=== PATIENT | male | born 1935 | race Caucasian/White ===

== ENCOUNTER 2020-07-21 07:46 | Inpatient (IN) | payer OTHER ==
[~2020-07-21] VITALS: Ht 167.6 cm; Wt 96.4 kg
[~2020-07-21 07:46] MED LIST: CLOP75; DOES NOT KNOW MEDS
[2020-07-21 09:20] LABS: Alanine Aminotransfer (ALT/SGP 31 U/L (12-78); Albumin, Blood 2.1 g/dL (3.4-5.0); Albumin/Globulin Ratio 0.5 (0.8-1.8); Alk Phos 89 U/L (50-136); Anion Gap 7 mmol/L (6-16); Aspartate Aminotrans (AST/SGOT 83 U/L (12-37); Bilirubin, Total 0.5 mg/dL (0.1-1.0); Blood Urea Nitrogen 22 mg/dL (8-24); Bun/Creatinine Ratio 19.8 (12.0-20.0); CO2, Blood 23 mmol/L (21-32); Calcium, Blood 7.8 mg/dL (8.5-10.1); Chloride, Blood 105 mmol/L (98-108); Creatinine, Blood 1.11 mg/dL (0.60-1.20); Globulin, Blood 4.4 g/dL (2.2-4.0); Glomerular Filtration Rate >60 (60-); Glucose, Blood 107 mg/dL (70-99); Potassium, Blood 4.4 mmol/L (3.5-5.5); Sodium, Blood 135 mmol/L (136-145); Total Protein, Blood 6.5 g/dL (6.4-8.2); Troponin I <0.015 ng/mL (0.000-0.040)
[2020-07-21] MEDS ORDERED: GLIMEPIRIDE4 MG PO (09:33)
[2020-07-21] MEDS ORDERED: CARVEDILOL25 MG PO (09:33)
[2020-07-21] MEDS ORDERED: FUROSEMIDE20 MG PO (09:33)
[2020-07-21 09:34] LABS: BASOPHILS ABSOLUTE AUTO 0.01 K/mm3 (0.00-0.23); BASOPHILS PERCENT AUTO 0 % (0-2); EOSINOPHILS PERCENT AUTO 0 % (0-6); Hematocrit 38.9 % (37.0-53.0); Hemoglobin 12.5 g/dL (13.5-17.5); IMMATURE GRAN ABSOLUTE AUTO 0.02 K/mm3 (0.00-0.10); IMMATURE GRAN PERCENT AUTO 0 % (0-1); LYMPHOCYTES ABSOLUTE AUTO 1.05 K/mm3 (0.84-5.20); LYMPHOCYTES PERCENT AUTO 12 % (21-46); MONOCYTES ABSOLUTE AUTO 0.67 K/mm3 (0.16-1.47); MONOCYTES PERCENT AUTO 8 % (4-13); Mean Corpuscular HGB 29.9 pg (26.0-34.0); Mean Corpuscular HGB Conc 32.1 g/dL (31.5-36.5); Mean Corpuscular Volume 93 fL (80-100); Mean Platelet Volume 9.9 fL (9.1-12.4); NEUTROPHILS ABSOLUTE AUTO 6.93 K/mm3 (1.96-9.15); NEUTROPHILS PERCENT AUTO 80 % (41-73); Platelet Count 151 K/mm3 (150-400); RDW Coefficient Variation 13.9 % (11.7-14.2); RDW Standard Deviation 47.7 fL (35.1-46.3); Red Blood Cell Count 4.18 M/mm3 (4.30-5.90); White Blood Cell Count 8.68 K/mm3 (4.00-11.30)
[2020-07-21] MEDS ORDERED: BASAGLAR K100 UNIT/1 (09:34)
[2020-07-21] MEDS ORDERED: ATOR40TA PO (09:34)
[2020-07-21] MEDS ORDERED: CILOSTAZOL50 MG PO (09:35)
[2020-07-21] MEDS ORDERED: PLAVIX75 MG PO (09:35)
[2020-07-21] MEDS ORDERED: ALLO300 PO (09:35)
[2020-07-21] MEDS ORDERED: LOSARTAN POTAS100 M1 PO (11:43)
--- NOTE | 2020-07-21 18:48 | NUR ---
PT RESTING IN BED AFTER DINNER AND MEDICATION ADMIN. PT MAKES NO COMPLAINTS AT THIS TIME. PT ALERT AND ORIENTED AND UNDERSTANDS HOW HIS LOW BS LEAD TO HIS RECENT FALL AT HOME AND MEDICAL UNIT STAY. PT IS ON BED REST AND USES BREIFS AT THE TIME HE LOOSES URIN AND STOOL WHEN HE COUGHS. sTAFF WILL CONT TO MONITOR AND PT WILL REMAIN ON 2L.
--- NOTE | 2020-07-22 04:50 | NUR ---
SHIFT SUMMARY ADMITTED FOR HYPOGLYCEMIA AND RESP FAILURE. COVID POSITIVE. DNR CODE. PT IS ON 2 LPM O2 HERE, RA AT HOME. HE IS INDEPENDENT AT HOME, BUT WEAK AND TWO PERSON ASSIST SINCE ADMIT. HE IS A&O X4 FOR THIS SHIFT. NO HYPOGLYCEMIC EPISODES THIS SHIFT.
[2020-07-22 04:51] LABS: Hematocrit 37.4 % (37.0-53.0); Hemoglobin 12.3 g/dL (13.5-17.5); Mean Corpuscular HGB 30.4 pg (26.0-34.0); Mean Corpuscular HGB Conc 32.9 g/dL (31.5-36.5); Mean Corpuscular Volume 93 fL (80-100); Mean Platelet Volume 10.3 fL (9.1-12.4); Platelet Count 155 K/mm3 (150-400); RDW Coefficient Variation 13.6 % (11.7-14.2); Red Blood Cell Count 4.04 M/mm3 (4.30-5.90)
[2020-07-22 05:21] LABS: Alanine Aminotransfer (ALT/SGP 32 U/L (12-78); Albumin, Blood 1.9 g/dL (3.4-5.0); Albumin/Globulin Ratio 0.4 (0.8-1.8); Alk Phos 93 U/L (50-136); Anion Gap 7 mmol/L (6-16); Aspartate Aminotrans (AST/SGOT 68 U/L (12-37); Bilirubin, Total 0.4 mg/dL (0.1-1.0); Blood Urea Nitrogen 28 mg/dL (8-24); Bun/Creatinine Ratio 28.1 (12.0-20.0); CO2, Blood 24 mmol/L (21-32); Calcium, Blood 7.9 mg/dL (8.5-10.1); Chloride, Blood 102 mmol/L (98-108); Globulin, Blood 4.5 g/dL (2.2-4.0); Glomerular Filtration Rate >60 (60-); Glucose, Blood 328 mg/dL (70-99); Potassium, Blood 4.2 mmol/L (3.5-5.5); Sodium, Blood 133 mmol/L (136-145); Total Protein, Blood 6.4 g/dL (6.4-8.2)
--- NOTE | 2020-07-22 18:07 | NUR ---
PT RESTING IN BED AFTER DINNER AND PM MEDICATION ADMIN. PT POWERGLIDE WNL. ALERT AND ORIENTED. NO ANXIETY, PAIN OR SOB. NO HYPOGLYCEMIC EPISODES THIS SHIFT. PT NOW 1 PERSON ASSIST WITH BATHROOM PRIV. AND BED/CHAIR ALARM. STAFF WILL CONT. TO MONITOR.
--- NOTE | 2020-07-23 05:26 | NUR ---
SHIFT SUMMARY ADMITTED FOR DYSPNEA/WEAKNESS. COVID POSITIVE. DNR CODE. PT O2 INCREASED TO 4 1/2 LPM THIS SHIFT DUE TO DESATURATION. PT SLEPT THROUGHOUT SHIFT. CALL BUTTON WITHIN REACH. NO NEW CONCERNS
[2020-07-23 05:42] LABS: BASOPHILS ABSOLUTE AUTO 0.01 K/mm3 (0.00-0.23); BASOPHILS PERCENT AUTO 0 % (0-2); EOSINOPHILS PERCENT AUTO 0 % (0-6); Hematocrit 38.6 % (37.0-53.0); Hemoglobin 12.8 g/dL (13.5-17.5); IMMATURE GRAN ABSOLUTE AUTO 0.04 K/mm3 (0.00-0.10); IMMATURE GRAN PERCENT AUTO 0 % (0-1); LYMPHOCYTES ABSOLUTE AUTO 0.77 K/mm3 (0.84-5.20); LYMPHOCYTES PERCENT AUTO 6 % (21-46); MONOCYTES ABSOLUTE AUTO 0.58 K/mm3 (0.16-1.47); MONOCYTES PERCENT AUTO 5 % (4-13); Mean Corpuscular HGB 29.9 pg (26.0-34.0); Mean Corpuscular HGB Conc 33.2 g/dL (31.5-36.5); Mean Corpuscular Volume 90 fL (80-100); Mean Platelet Volume 10.5 fL (9.1-12.4); NEUTROPHILS ABSOLUTE AUTO 11.45 K/mm3 (1.96-9.15); NEUTROPHILS PERCENT AUTO 89 % (41-73); Platelet Count 201 K/mm3 (150-400); RDW Coefficient Variation 13.4 % (11.7-14.2); RDW Standard Deviation 44.6 fL (35.1-46.3); Red Blood Cell Count 4.28 M/mm3 (4.30-5.90); White Blood Cell Count 12.85 K/mm3 (4.00-11.30)
[2020-07-23 06:02] LABS: Anion Gap 7 mmol/L (6-16); Blood Urea Nitrogen 33 mg/dL (8-24); Bun/Creatinine Ratio 34.7 (12.0-20.0); CO2, Blood 26 mmol/L (21-32); Chloride, Blood 102 mmol/L (98-108); Creatinine, Blood 0.95 mg/dL (0.60-1.20); Glomerular Filtration Rate >60 (60-); Glucose, Blood 258 mg/dL (70-99); Sodium, Blood 135 mmol/L (136-145)
--- NOTE | 2020-07-23 18:05 | NUR ---
PT SITTING IN BED WITH DINNER TRAY ALERT AND ORIENTED. PT TREATED WITH MEDICATIONS PER EMAR FOR COUGH. PT C/O BEING WEAK AFTER AMBULATING TOO AND FROM BATROOM. URINAL SHOULD BE USED INTERMITTENTLY. O2 HAS REMIANED ABOVE 90 ON 3L. PG WNL AND FLUSHED. NO C/O CHEST PAIN. STAFF WILL CONT. TO MONITOR.
--- NOTE | 2020-07-24 04:50 | NUR ---
CHASSIS WIRER SUMMARY PT AAOX3 AND PLEASANT. MAKES NEEDS KNOWN. ON 3L O2 AT START OF SHIFT SATTING AROUND 90%, HOWEVER PT HAD TO BE BUMPED UP TO 5L THIS AM TO GET BACK TO 90%. THIS HAS BEEN A TREND FOR THE PT PER RESPIRATORY THERAPY, WILL CONTINUE TO MONITOR RESPIRATORY STATUS FOR FURTHER CHANGES. PT HAS HAD AN INTERMITTENT DRY COUGH. VSS, WILL CONTINUE TO MONITOR.
[2020-07-24 13:18] LABS: PCO2 Arterial 32.2 mmHg (35-45); PO2 Arterial 53.5 mmHg (80-100); pH Blood Arterial 7.46 (7.35-7.45)
--- NOTE | 2020-07-24 13:30 | NUR ---
PT DESATING THIS AM PT WAS ON 5L O2 AT START OF SHIFT. PER DIVISIONAL MERCHANDISING MANAGER, HE HAS BEEN ABLE TO WEAN TO 2-3L IN THE MORNINGS. PT O2 SATS IN HIGH 80'S BY 1000. O2 INCREASED TO 6-7LPM. APPROX 12:30, PT WAS USING THE BSC, AND SATS DROPPED TO THE LOW 80'S. O2 INCREASED TO 8LPM WITH SATS INCREASING TO 88%. RT WAS CALLED FOR ASSIST. RT TOOK ABG, AND SWITCHED PT TO HIGH FLOW NC. PT SATING IN LOW 90'S ON 15L HIGH FLOW NC. PT REPORTS SOME WEAKNESS AND SOB, BUT BREATHING APPEARS UNLABORED. LS DIM T/O. PT SITTING UPRIGHT IN CHAIR, STARTING TO EAT LUNCH. DR MAGALLANES NOTFIED OF CHANGES.
--- NOTE | 2020-07-24 14:32 | NUR ---
TRANSFER TO ICU PT TRANSFERRED TO ICU AT APPROX 1432. PT TRANSFERRED D/T O2 DESATS. O2 NEEDS SLOWLY INCREASING T/O THE DAY. RT WAS CALLED. PT SATING IN HIGH 80'S ON 15L HIGH FLOW NC. CONSULTED WITH DR MAGALLANES, AND DECISION MADE TO TRANSFER TO ICU PCU HAS NO AVAILABLE BEDS. PT AxOx4. IN NO APPARENT DISTRESS T/O EVENT. C/O MILD SOB AND OVERALL WEAKNESS. REPORTED LOW APPETITE AND LOOSE STOOLS x SEVERAL DAYS. PLEASANT AND COOPERATIVE WITH CARE. PT FAMILY WAS UPDATED ON TRANSFER. REPORT CALLED TO DEMETRA SKELTON RN IN ICU. PT SAFELY TRANSFERRED VIA [facility] BY [address] RN AND WESLEY JOEL.
--- NOTE | 2020-07-24 15:50 | NUR ---
ASSUMED CARE: PT ARRIVED TO ROOM ICU-12 AT APPROX 1435. ON ARRIVAL, HE IS A&O, PLEASANT & COOPERATIVE. HE IS IN PRONE POSITION BUT HAS RETURNED TO [place] FOR TX TO NEW BED. HE IS NOW SITTING UP IN OLIVEIRA's POSITION. PT TRANSITIONED FROM HIFLOW NC TO AIRVO W/ SETTINGS 60 L/MIN & 60% FIO2. O2 SATS > 90% ON AVG W/ OCCASIONAL DESATS TO 86% W/ COUGHING/ EXERTION. MONITOR SHOWS SR W/ HR 80s, BP STABLE. PT HAS C/O LOOSE STLS SINCE COVID DX, ATTENDS IN PLACE FOR OCCASIONAL STRESS INCONTINENCE W/ COUGHING. VOIDS USING URINAL ABLE. SKIN CONDITION OVERALL CDI, Q2H REPOSITIONING TO MAINTAIN SKIN INTEGRITY. TANJA Salazar RN, TO CALL REPORT TO THIS RN WHEN ABLE.
--- NOTE | 2020-07-24 15:54 | NUR ---
UPDATED FAMILY: PT'S DAUGHTER DON [phone] UPDATED ON PT'S TRANSFER TO ICU-12
--- NOTE | 2020-07-24 18:36 | NUR ---
SHIFT SUMMARY: NO ACUTE CHANGES SINCE PRIOR UPDATES. PT REMAINS A&O, PLEASANT & COOPERATIVE W/ CARE. AIRVO IN USE W/ SETTINGS 60 L/MIN & 65% FIO2, TITRATED UP FROM 60% FIO2 FOR DESATS TO 88% WHILE EATING DINNER. MONITOR SHOWS SR W/ HR 80s, BP STABLE. PT TOLERATING PO INTAKE WELL W/ NO NAUSEA. NO VOID SINCE TX TO ICU. SKIN CONDITION OVERALL UNCHANGED. WILL CONTINUE TO MONITOR & REPORT OFF TO ONCOMING RN.
--- NOTE | 2020-07-24 20:00 | NUR ---
REPORT RECEIVED FROM WESLEY MCCRARY.
--- NOTE | 2020-07-25 02:29 | NUR ---
REPORT GIVEN TO KYLAH RN NO ACUTE CHANGES THUS FAR. VSS. ON RUSSIAN LANGUAGE INSTRUCTOR. AIRVO SETTINGS REMAIN UNCHANGED
--- NOTE | 2020-07-25 04:00 | NUR ---
Care assumed 0230 Report recieved from WESLEY Jensen. Pt is A/O, cooperative, and pleasant. Resting in bed. Airvo settings of 60L with fio2 65%, spo2 > 90%. During turns and elen care pt destats to 85% but quickly recovers. SOB noted. Pt appears anxious and states he is cold. Blankets from warmer given. NSR, HR 80's, VSS. Will continue to monitor.
[2020-07-25 05:13] LABS: Albumin, Blood 1.8 g/dL (3.4-5.0); Anion Gap 7 mmol/L (6-16); Blood Urea Nitrogen 39 mg/dL (8-24); CO2, Blood 25 mmol/L (21-32); Chloride, Blood 101 mmol/L (98-108); Creatinine, Blood 0.98 mg/dL (0.60-1.20); Glomerular Filtration Rate >60 (60-); Glucose, Blood 315 mg/dL (70-99); Phosphorus, Blood 2.2 mg/dL (2.5-4.9); Potassium, Blood 4.2 mmol/L (3.5-5.5); Sodium, Blood 133 mmol/L (136-145)
--- NOTE | 2020-07-25 06:20 | NUR ---
Shift Summary Pt remains on Airvo, settings unchanged. Able to use call light. Dr. Jennings called in regards to low phos, orders recieved. Pt resting in bed. No acute changes since last assessment. Will report to oncoming shift.
--- NOTE | 2020-07-25 08:20 | NUR ---
ASSESSMENT- PT AWAKE, ALERT, COOPERATIVE WITH CARES. STATES STILL HAS SOME SOB BUT STATES SOMEWHAT BETTER. ON HIGH FLOW AIRVO-SETTINGS CHANGED BY RT FOR PT COMFORT, AT 55 L/MIN AND 65% NOW, STATES FEELS BETTER WITH LESS FLOW. LUNGS VERY DIMINISHED. CONGESTED COUGH. DESATS WITH ANY ACTIVITY, REPOSITIONING IN BED, RECOVERS QUICKLY. SINUS, BP ELEVATED. AM MEDS GIVEN. SKIN W/D. DENIES PAIN. ABDOMEN LARGE, STATES UNABLE TO LAY ON ABDOMEN PRONE D/T LARGE BELLY. VOIDING WITH ASSISTANCE, DOES HAVE INCONTINENCE, ATTENDS ON. SET UP FOR BREAKFAST, STATES POOR APPETITE. ENHANCED ISOLATION PRECAUTIONS, EXPLAINED PLAN OF CARE, STATES UNDERSTANDING. ABLE TO USE CALL LIGHT.
--- NOTE | 2020-07-25 10:52 | NUR ---
PT ABLE TO BRUSH OWN TEETH, FATIGUES EASILY WITH ACTIVITY. AM CARE DONE, STOOD AT BEDSIDE TO TRANSFER TO CHAIR-TOLERATED FAIR, OXYGEN SATURATIONS DECREASED TO 81%, RECOVERS SLOWLY. RX FOR COUGHING. DR. MAGALLANES HERE-UDPATED AND ASSESSED PT.
--- NOTE | 2020-07-25 11:52 | NUR ---
PT SITTING UP IN BED. STATES VERBAL CONSENT TO RELEASE INFORMATION TO DAUGHTER DON, STATES OK FOR BLOOD TRANSFUSION IF NEEDED. DNR STATUS, REFUSES LIFE SUPPORT. SATURATIONS 88-89% AT REST. EATING SMALL AMOUNT
--- NOTE | 2020-07-25 16:15 | NUR ---
DR. MARY HERE-EVALUATED PT. PT UP TO BEDSIDE COMMODE AND THEN TRANSFER BACK TO CHAIR. DID FAIR. DESATS WITH ACTIVITY. NEEDED TO INCREASE FLOW AND OXYGEN TO MAINTAIN CONSISTENT SATURATIONS OF 90%. RESTING COMFORTABLY WHEN UNDISTURBED. LESS COUGHING. ABLE TO USE PEP VALVE
--- NOTE | 2020-07-25 16:45 | NUR ---
CODE STATUS- DISCUSSION WITH DAUGHTER ON PHONE-UPDATE GIVEN. PT ALERT, ORIENTED, STATED DOES WANT DNR STATUS, DOES NOT WANT VENTILATOR SUPPORT. PT'S DAUGHTER STATES SHE WOULD WANT VENTILATOR SUPPORT IF HE DETERIORATES AND CANNOT MAKE HIS OWN DECISION. FACILITATED PHONE CALL BETWEEN PT AND DAUGHTER-DAUGHTER STATES THAT STILL SHE WANTS VENTILATOR SUPPORT IF PT NEEDS IT. NOTIFIED DR. MARY AND PALLIATIVE CARE OF DISCUSSION.
--- NOTE | 2020-07-25 17:20 | NUR ---
CODE STATUS- PT STATES OKAY FOR DAUGHTER TO MAKE MEDICAL DECISIONS FOR HIM. STATES HE WILL DO WHATEVER HIS DOCTOR AND DAUGHTER RECOMMEND.
--- NOTE | 2020-07-25 17:41 | NUR ---
PT REMAINS UP IN CHAIR, ABLE TO REPOSITION SELF WITH VERBAL CLUES. EATING SMALL AMOUNTS. TOLERATING AIRVO, DOES COMPLAIN OF SOME DISCOMFORT WITH HIGH FLOW. REVIEWED PLAN OF CARE, NEED TO KEEP ON OXYGEN, EAT, ACTIVITY, STATES UNDERSTANDING. NSR, BP STABLE. POWER GLIDE DI
--- NOTE | 2020-07-25 18:43 | NUR ---
PT C/O BEING HOT THEN COLD. COMFORT MEASURES, FAN ON. AFEBRILE. VSS. SATURATIONS 90%
--- NOTE | 2020-07-25 19:25 | NUR ---
ASSUMED CARE OF PT AT 1915. REPORT RECEIVED. PT PRESENTS IN RECLINER CHAIR. HAS CALLED TO GO BACK TO BED. WILL MAKE THIS HAPPEN. WILL REVIEW CHART AND PLAN OF CARE FOR THIS PT.
--- NOTE | 2020-07-25 21:29 | NUR ---
PT CURRENTLY BACK TO BED. STATES THAT HE IS UNCOMFORTABLE WITH THE BED. AFTER ADJUSTMENTS, AND TURNS WITH PILLOWS, PT FINALLY STATES THAT WITH BED ON MAXI-FLATE, HE IS MORE COMFORTABLE. PT HAS MOIST UNPRODUCTIVE COUGH. WILL CONINUE TO MONITOR.
--- NOTE | 2020-07-26 00:54 | NUR ---
PT TOLERATES TURNS IN BED. IS ABLE TO ASSIST SOME WITH THOSE TURNS. HAD, WHILE HE WAS SLEEPING, GOT HIS AIRVO OFF. ON ROOM AIR, HE WOULD DESATURATE TO 80 PERCENT.
[2020-07-26 03:37] LABS: BASOPHILS ABSOLUTE AUTO 0.01 K/mm3 (0.00-0.23); BASOPHILS PERCENT AUTO 0 % (0-2); EOSINOPHILS PERCENT AUTO 0 % (0-6); Hemoglobin 13.7 g/dL (13.5-17.5); IMMATURE GRAN ABSOLUTE AUTO 0.08 K/mm3 (0.00-0.10); IMMATURE GRAN PERCENT AUTO 1 % (0-1); LYMPHOCYTES ABSOLUTE AUTO 0.78 K/mm3 (0.84-5.20); LYMPHOCYTES PERCENT AUTO 6 % (21-46); MONOCYTES ABSOLUTE AUTO 0.63 K/mm3 (0.16-1.47); MONOCYTES PERCENT AUTO 5 % (4-13); Mean Corpuscular HGB 30.4 pg (26.0-34.0); Mean Corpuscular HGB Conc 34.3 g/dL (31.5-36.5); Mean Corpuscular Volume 89 fL (80-100); Mean Platelet Volume 10.1 fL (9.1-12.4); NEUTROPHILS ABSOLUTE AUTO 11.38 K/mm3 (1.96-9.15); NEUTROPHILS PERCENT AUTO 88 % (41-73); Platelet Count 214 K/mm3 (150-400); RDW Coefficient Variation 13.5 % (11.7-14.2); RDW Standard Deviation 43.8 fL (35.1-46.3); Red Blood Cell Count 4.51 M/mm3 (4.30-5.90); White Blood Cell Count 12.88 K/mm3 (4.00-11.30)
[2020-07-26 03:52] LABS: Albumin, Blood 1.9 g/dL (3.4-5.0); Anion Gap 9 mmol/L (6-16); Blood Urea Nitrogen 39 mg/dL (8-24); CO2, Blood 24 mmol/L (21-32); Calcium, Blood 8.2 mg/dL (8.5-10.1); Chloride, Blood 104 mmol/L (98-108); Glomerular Filtration Rate >60 (60-); Glucose, Blood 193 mg/dL (70-99); Magnesium, Blood 2.5 mg/dL (1.6-2.4); Phosphorus, Blood 3.6 mg/dL (2.5-4.9); Potassium, Blood 4.1 mmol/L (3.5-5.5); Sodium, Blood 137 mmol/L (136-145)
--- NOTE | 2020-07-26 05:35 | NUR ---
PT HAS BEEN UP TO BEDSIDE COMMODE WITH SOME ASSIST. PT VOIDS Q.S. AND HAS LOOSE BROWN STOOL. PT FOLLOWS COMMANDS AND CUES WELL. DOES DEMONSTRATE SOME EXERTIONAL DYSPNEA. REMAINS ON AIRVO WITH FLOW AT 60 L/M WITH FIO2 70-73 PERCENT. MAINTAINS > 90 PERCENT SATURATIONS IN TIMES WITHOUT EXERTION OR COUGHING. WITH COUGH, PT WILL DESATURATE TO 83 PERCENT. RECOVERY IS SOMEWHAT SLOW. CURRENTLY AT 91 PERCENT. HAVE REPOSITIONED PT Q 2 HOURS. HE HAS TOLERATED THIS WELL. PILLOWS PLACED IN 'A' FRAME POSITION TO HELP WITH RESPIRATORY EFFORTS. PT STATES THAT THIS IS MUCH BETTER AND FEELS MUCH MORE COMFORTABLE IN BED. CHEST XRAY HAS BEEN DONE THIS AM. WILL CONTINUE TO MONITOR PT, AND WILL REPORT OFF TO ONCOMING RN.
--- NOTE | 2020-07-26 07:27 | NUR ---
Assumed care of pt at 0700. Bedside report received from Guille OLSON. Pt A&O x 4. Answers questions. Follows commands. Verbalizes needs. Pt on AirVo with 60 LPM flow and 70% FiO2. SpO2 91%. Lungs clear, dim in bases. No cough noted at this time. SR per monitor, rate 80s. BP high, plan to give scheduled Coreg. Bed in lowest position. Call light in reach. Pt denies need at this time. Pt in airborne isolation for COVID 19 with aerosolizing procedure- AirVO
--- NOTE | 2020-07-26 07:38 | NUR ---
At this time, pt coughing dry and nonproductive
--- NOTE | 2020-07-26 11:02 | NUR ---
Spoke with Bedside WESLEY Welsh and discussed case. Concerns are discussed regarding Pt's wishes to be DNR/DNI and the potential of Pt's daughter to change his code status in the event Pt is not able to make decisions for himself. Pt currently on AIRVO requiring slightly more support today. Pt sittine in recliner chair upon arrival. Pt is A&OX4 and denies pain at this time. Pt reports experiencing dyspnea when speaking too much. Pt reports feeling better today. Engaged in therapeutic discussion regarding code status. Pt states if his heart stops or experiences a cardiac event that he does not want to be resuscitated. Discussed in the event of his respiratory status worsening and intubation. Pt states he does not want to be intubated. Pt confirms his daughter to be his healthcare security systems sales representative in the event he can not speak for himself. Inquired about how much decision making power he wants his daughter to have. Asked if he is no longer to make decisions for himself, would he want his daughter to have the ability to change his code status. Pt states daughter is not to change his code status and he is to remain DNR/DNI. Offered therapeutic listening and answered questions. Pt reports no concerns at this time. Spoke with Bedside WESLEY Welsh and relayed Pt's wishes. Palliative Care will remain available.
--- NOTE | 2020-07-26 12:35 | NUR ---
Patient sitting up in recliner, states he is feeling better than he did yesterday. Patient met with Giovany from palliative care today and expressed that he would like his daughter to assist with decision making if he is unable to do this himself, however he does NOT want his code status changed. When this RN is in pt's room, he revisits topic of code status, unprompted, and states "When it's my time to go, let me go. Don't try and stop it." He explains a similar instance when he was asked about code status with his solid center winder and stated "If my heart stops, don't try and restart it". Dr Yang in to see patient. Discussed pt's code status. At this time, pt remains on AirVO 60 LPM and 73% FiO2. SpO@ 90%.
--- NOTE | 2020-07-26 15:48 | NUR ---
Pt remains sitting up in recliner. Plan for patient to go back to bed after dinner; pt agreeable. Pt called spouse and son, Derek to update. Pt's daughter updated 2x by this RN as she called unit.
--- NOTE | 2020-07-26 18:52 | NUR ---
Patient has remained in chair from time after breakfast up until after dinner. Pt tolerated this well. Dyspnea with mobilizing but pt states overall he feels better today than he did yesterday. AirVO is at 60 LPM and 65% FiO2. SpO2 94%. SR per monitor. BP improved after giving carvedilol. Pt back in bed at this time. Will continue to closely monitor until care handoff and bedside report with oncoming RN.
--- NOTE | 2020-07-26 20:00 | NUR ---
ASSUMED CARE OF PT AT 1915. REPORT RECEIVED. PT PRESENTS IN BED. ALERT AND ORIENTED. PLEASANT AND COOPERATIVE WITH CARE AND ASSESSMENT. DENIES PAIN. HAS MOIST COUGH ON OCCASSION. PT STATES SMALL AMOUNT OF EXPECTORANT. CLEAR IN COLOR. PT CONTINUES ON AIRVO WITH FIO2 75 PERCENT WITH FLOW OF 60 L/M. PT ABLE TO MOVE HIMSELF ABOUT IN BED AND MAKE ADJUSTMENTS. DOES NEED ASSIST WITH BOOSTS IN BED, AND RESPIRATORY POSITIONING WITH PILLOWS. WILL REVIEW CHART AND PLAN OF CARE FOR THIS PT.
--- NOTE | 2020-07-26 23:00 | NUR ---
PT UP TO BEDSIDE COMMODE FOR VOID AND SMALL STOOL. DOES HAVE PERSISTANT COUGH WHILE UP. PT DESATURATES TO 74 PERCENT. INCREASED FIO2 PER AIRVO AND PROVIDED NRB MASK AT 100 PERCENT OVER AIRVO TO IMPROVE SATURATIONS. PT BACK TO BED, AND AIRVO RETURNED TO 75 PERCENT FIO2 AT 60 L/M FLOW. PT CURRENTLY BACK TO 92 - 93 PERCENT SATURATION. WILL CONTINUE TO MONITOR.
--- NOTE | 2020-07-27 02:56 | NUR ---
PT AGAIN WAS UP TO COMMODE WITH ASSIST. SMALL BM. DOES DESATURATE INTO 75 PERCENT. RECOVERS ONCE BACK TO BED. NO VERTIGO OR ISSUES WITH TRANSFER. PT CURRENTLY 92 PERCENT WITH AIRVO AT 75 PERCENT FIO2 AND 60 L/M FLOW.
--- NOTE | 2020-07-27 06:30 | NUR ---
PT HAS BEEN ABLE TO REST WITH AIRVO AT 60 L/M FLOW, AND 75 PERCENT SATURATION. HAS MAINTAINED SATURATIONS > 90 PERCENT. HAS BEEN ABLE TO MOVE HIMSELF ABOUT IN BED SOME. HAVE ASSISTED WITH PILLOWS AND ADJUSTMENTS IN BED FOR COMFORT. WILL CONTINUE TO MONITOR PT, AND WILL REPORT OFF TO ONCOMING RN.
--- NOTE | 2020-07-27 07:15 | NUR ---
Assumed care of pt at 0700. Bedside report received from Guille OLSON. Pt A&O x 4, but lethargic. Answers questions. Follows commands. Verbalizes needs. SpO2 90% or greater. Pt on AirVo with 60 LPM and 75% FiO2. SpO2 90% or greater. SR per monitor. BP stable. Bed in lowest position. Call light in reach. Pt denies need at this time.
--- NOTE | 2020-07-27 12:00 | NUR ---
This AM, pt asked to use bedside commode for bowel movmement. SpO2 dropped to 78%. Increased to 81% but did not recover any more. AirVo settings adjusted to 60 LPM and 95% FiO2. SpO2 92%. Plan to titrate AirVo down when able to do so. Overall, pt states he does not feel as good as he did yesterday. Pt states he feels more weak and shaky. This RN encouraged pt to drink glucerna to supplement his nutrition. Pt drank one glucerna. Pt not as steady on feet. Requires more assistance to mobilize than he did yesterday. Pt's daughter, Saige, updated as she called unit today.
--- NOTE | 2020-07-27 15:00 | NUR ---
Dr Yang in room to see patient. Discussed BiPAP with patient and stated he would give the patient time to consider this option. Pt later calls this RN into the room and states "Take off the air. Terminate me." This RN enters patient's room to further investigate this statement. Pt mentions that his oxygen is turned up to the maximum setting. He states that he does not want to pursue treatment anymore. This RN offers option of changing treatment plan to emphasize comfort instead of current treatment plan. Pt states this is what he wants to do. This RN encouraged patient to discuss this with his daughter, Saige. Pt agreaable to do so. Pt used in room phone to talk to daughter for about five minutes regading his wishes. Pt then hands the phone to this RN. This RN provides summary of the day, including pt feeling generally worse. Summarizes what pt told this RN his wishes are, purusing comfort care. Saige, tearful, states that if patient wants that, she is agreeable. Verbalizes concern about patient being alone. This RN told her she may come and visit patient in room if we are proceeding with comfort care. States she is in [place], not in quarantine, and is planning to come down as soon as possible. When she gets here, we will proceed with comfort care. Pt's son and spouse are currently in quarantine.
--- NOTE | 2020-07-27 18:34 | NUR ---
SUMMARY At this time, pt sitting up in recliner, states he does not want to go back to bed. States he feels better when he is sitting up in the recliner. Pt on Airvo with 60 LPM and 95% FiO2. SpO2 93%. Pt is depressed. Visiting with daughter. States he doesn't feel to bad right now. Disucussed treatment plan with patient and daughter. Plan to continue course and pt will try BiPAP/CPAP when no longer able to maintain SpO2 with AirVo. No plans to continue forward with comfort care. these are pt's wishes. Pt states general dissatisfaction with circumstance of hospitalization and not being able to see visitors. This RN encouraged daughter to bring books or some form of entertainment that patient will appreciate. SR per monitor. Unmeasured urine void due to incontince. Will continue to closely monitor until care handoff and bedside report with oncoming RN.
--- NOTE | 2020-07-27 20:00 | NUR ---
ASSUMED CARE OF PT AT 1915. REPORT RECEIVED. PT PRESENTS SITTING IN RECLINER CHAIR. HAD JUST FINISHED USING COMMODE. LIGHT BLOOD TINGING IN STOOL PER LEAD PROGRAMMER ANALYST. PT HAS OPTED TO TRY TO SLEEP TONIGHT. EXTRA PILLOWS PROVIDED FOR COMFORT. PT DISCUSSES HIS ENCOUNTER THIS DAY WITH HIS DAUGHTER. STATED THAT THE LONGER THAT HE SPOKE WITH HER AND VISITED, THE "BETTER" HE FELT. OF NOTE: HAVE DECREASED FIO2 TO 75 PERCENT PER AIRVO WITH FLOW 60 L/M. PT MAINTAINS > 90 PERCENT SATURATIONS EXCEPT FOR WHEN HE HAS COUGH. WILL REVIEW CHART AND PLAN OF CARE FOR THIS PT.
--- NOTE | 2020-07-27 23:00 | NUR ---
PT HAS MAINTAINED ADEQUATE SATURATIONS WHILE UP IN RECLINER CHAIR. AIRVO 60 L/M WITH FIO2 AT 75 PERCENT. PT DEMONSTRATES EXERTIONAL DYSPNEA THAT STIMULATES COUGH. PT WILL DESATURATE TO MID 80'S AND RECOVER QUICKLY. PT HAS REMAINED IN RECLINER CHAIR. WILL CONTINUE TO MONITOR PT.
[2020-07-28 04:53] LABS: BASOPHILS ABSOLUTE AUTO 0.01 K/mm3 (0.00-0.23); BASOPHILS PERCENT AUTO 0 % (0-2); EOSINOPHILS PERCENT AUTO 0 % (0-6); Hematocrit 41.1 % (37.0-53.0); Hemoglobin 13.8 g/dL (13.5-17.5); IMMATURE GRAN ABSOLUTE AUTO 0.09 K/mm3 (0.00-0.10); IMMATURE GRAN PERCENT AUTO 1 % (0-1); LYMPHOCYTES ABSOLUTE AUTO 0.48 K/mm3 (0.84-5.20); LYMPHOCYTES PERCENT AUTO 4 % (21-46); MONOCYTES ABSOLUTE AUTO 0.49 K/mm3 (0.16-1.47); MONOCYTES PERCENT AUTO 4 % (4-13); Mean Corpuscular HGB 29.7 pg (26.0-34.0); Mean Corpuscular HGB Conc 33.6 g/dL (31.5-36.5); Mean Corpuscular Volume 89 fL (80-100); Mean Platelet Volume 10.3 fL (9.1-12.4); NEUTROPHILS ABSOLUTE AUTO 11.27 K/mm3 (1.96-9.15); NEUTROPHILS PERCENT AUTO 91 % (41-73); Platelet Count 235 K/mm3 (150-400); RDW Coefficient Variation 13.6 % (11.7-14.2); RDW Standard Deviation 43.7 fL (35.1-46.3); Red Blood Cell Count 4.64 M/mm3 (4.30-5.90); White Blood Cell Count 12.34 K/mm3 (4.00-11.30)
[2020-07-28 05:14] LABS: Anion Gap 8 mmol/L (6-16); Blood Urea Nitrogen 34 mg/dL (8-24); CO2, Blood 26 mmol/L (21-32); Calcium, Blood 7.8 mg/dL (8.5-10.1); Chloride, Blood 101 mmol/L (98-108); Creatinine, Blood 1.03 mg/dL (0.60-1.20); Glomerular Filtration Rate >60 (60-); Glucose, Blood 251 mg/dL (70-99); Magnesium, Blood 2.6 mg/dL (1.6-2.4); Potassium, Blood 3.7 mmol/L (3.5-5.5); Sodium, Blood 135 mmol/L (136-145)
--- NOTE | 2020-07-28 06:30 | NUR ---
PT HAS REMAINED IN BEDSIDE RECLINER CHAIR THROUGHOUT THE NIGHT. OXYGEN SATURATIONS HAVE REMAINED CONSISTANT 90-93 PERCENT WITH FIO2 68 PERCENT WITH 60 L/M FLOW. PT WILL HAVE DESATRUATIONS WITH COUGH OR EXERTION. UPON PIVOT TRANSFERS TO AND FROM [facility], PT HAS DESATURATIONS DOWN TO 78 PERCENT. DID USE NON REBREATHER MASK DURING THIS TIME WHICH HELPED PT RETURN TO APPROX 90 PERCENT SATURATIONS ONCE BACK TO RECLINER. PT HAS RED TINGED LOOSE STOOL. DRESSING CHANGE DONE WITH POWERGLIDE. EDUCTION DONE FOR PT ON LINE AND PROCEDURE. THIS LINE HAS NOT BEEN DRAWING BLOOD AND AFTER RETRACTING LINE APPROX 1 CM, WAS ABLE TO DRAW BLOOD FROM LINE. PT STATED THAT AFTER HE HAD VISIT FROM HIS DAUGHTER PREVIOUS DAY, HE FELT MUCH BETTER. PT WAS MORE ENGAGED IN CONVERSATION THIS SHIFT THAN HE HAS BEEN FOR PAST SEVERAL DAYS. WILL CONTINUE TO MONITOR PT, AND WILL REPORT OFF TO ONCOMING RN.
--- NOTE | 2020-07-28 08:10 | NUR ---
INITIAL ASSESSMENT PATIENT ALERT AND ORIENTED X 4, AFEBRILE. PATIENT HAS FLAT AFFECT. PATIENT SLOW TO RESPOND. PATIENT WEAK BUT ABLE [place] [facility]. PATIENT DENIES PAIN. PAITENT ON AIRVO 60 L AND 67% FIO2. LUNGS CLEAR IN UPPER LOBES AND DIMINISHED IN LOWER LOBES. PATIENT HAS OCCASIONAL COUGH. PATIENT STATES HE IS COUGHING UP MODERATE AMOUNT OF THICK, CLEAR SPUTUM. INCENTIVE SPIROMETER AT BEDSIDE. PATIENT VERY SOB WITH EXERTION AND DESATS DOWN INTO THE 70S. PATIENT IN SR, HR 70S TO 80S. SBP 180S. PATIENT HAS SCHEDULED HTN MEDICATION. 1+ EDEMA NOTED TO BLES. TRACE EDEMA NOTED TO BUES. ABDOMEN MODERATELY DISTENDED; PATIENT STATES NORMAL FOR HIM. ATTENDS IN PLACE FOR OCCASIONAL INCONTINENCE OF URINE AND STOOL. PATIENT HAVING LOOSE, FINESSE COLORED STOOLS. PATIENT HAS POOR APPETITE. PATIENT RECEIVING SCHEDULED LASIX. SKIN DRY AND FRAGILE. SCROTUM AND PENIS REDDENED. SCATTERED BRUISES NOTED. IV FLUSHED AND SALINE LOCKED. BED LOW, CALL LIGHT IN REACH. WILL CONTINUE TO MONITOR PATIENT FREQUENTLY THROUGHOUT SHIFT.
--- NOTE | 2020-07-28 12:43 | NUR ---
PATIENT SITTING IN CHAIR, EATING LUNCH. NO COMPLAINTS OF PAIN. AFEBRILE. HR 70S TO 80S. SBP 140S TP 150S. LUNGS DIMINISHED THROUGHOUT. AIRVO AT 60 L AND 75% FIO2 TO KEEP SATS 90% AND GREATER. BLOOD SUGAR OF 290; COVERAGE GIVEN. NO OTHER ACUTE CHANGES TO NOTE ON AT THIS TIME. WILL CONTINUE TO MONITOR.
--- NOTE | 2020-07-28 16:10 | NUR ---
PATIENT AFEBRILE. NO COMPLAINTS OF PAIN. HR 70S TO 80S. SBP 150S TO 160S. AIRVO REMAINS AT 60 L AND 75% FIO2. PATIENT HAD BLOOD SUGAR OF 341; COVERAGE GIVEN. PATIENT REFUSED BED BATH. NO OTHER ACUTE CHANGES TO NOTE ON AT THIS TIME. DAUGHTER IS OUTSIDE WINDOW AND VISITING ON THE PHONE WITH THE PATIENT. WILL CONTINUE TO MONITOR.
--- NOTE | 2020-07-28 18:48 | NUR ---
SHIFT SUMMARY PATIENT REMAINED ALERT AND ORIENTED X 4, AFEBRILE. PATIENT CONTINUED TO HAVE FLAT AFFECT BUT MORE POSITIVE THAN YESTERDAY. PATIENT HAD NO COMPLAINTS OF PAIN. PATIENT REMAINED 1 PA TO [facility] FROM CHAIR. PATIENT WANTED TO REMAIN IN CHAIR ALL DAY. PATIENT SHIFTING OWN HIPS IN CHAIR. NURSE OFFERED TO REPOSITION PATIENT IN CHAIR WITH PILLOWS AND PATIENT REFUSED. PATIENT REFUSED BED BATH THIS SHIFT. PATIENT REMAINED ON AIRVO 60 L AND FIO2 RANGED FROM 67 TO 75% FIO2. LUNGS REMAINED DIMINISHED THROUGHOUT. PATIENT CONTINUED TO HAVE MODERATE AMOUNT OF THICK CLEAR SPUTUM. PATIENT REMAINED IN SR, HR 70S TO 80S. SBP LOW 100S TO 180S. PATIENT HAVING LOOSE, FINESSE COLORED STOOLS. PATIENT GIVEN SCHEDULED LASIX. BLOOD SUGARS 241 TO 341 THIS SHIFT; COVERAGE GIVEN AT EACH CHECK. DAUGHTER CAME TO SEE PATIENT AND SPEAK TO THROUGH WINDOW TODAY. PATIENT APPEARS CONTENT AT THIS TIME. CALL LIGHT IN REACH. REPORT WILL BE GIVEN TO ONCOMING SCREEN MACHINE OPERATOR RN SHORTLY.
--- NOTE | 2020-07-28 20:00 | NUR ---
ASSUMED CARE: REPORT RECEIVED FROM WESLEY HONG. PT AFEBRILE. SOMEWHAT FLAT AFFECT HOWEVER IS COOPERATIVE WITH CARE. CURRENTLY SITTING IN CHAIR AND PREFERS TO SLEEP THERE. ON AIRVO AND SATTING WELL. SETTINGS ARE 60L/65% FIO2. PT IS INCONTINENT, IN ATTENDS. MAKES NEEDS KNOWN. PG TO EDER-NOT SECURED.
--- NOTE | 2020-07-28 21:25 | NUR ---
PT IN CHAIR. REQUESTS TO STAY IN CHAIR ALL NIGHT. CHAIR RECLINED FOR PT AND WARM BLANKETS GIVEN
--- NOTE | 2020-07-29 01:47 | NUR ---
pt in chair sleeping. Pt requested earlier on in shift to be left in chair and that he would reposition himself as necessary. Pt is able to reposition self for comfort.
[2020-07-29 04:43] LABS: BASOPHILS ABSOLUTE AUTO 0.02 K/mm3 (0.00-0.23); BASOPHILS PERCENT AUTO 0 % (0-2); EOSINOPHILS PERCENT AUTO 0 % (0-6); Hematocrit 39.5 % (37.0-53.0); Hemoglobin 13.9 g/dL (13.5-17.5); IMMATURE GRAN ABSOLUTE AUTO 0.06 K/mm3 (0.00-0.10); IMMATURE GRAN PERCENT AUTO 1 % (0-1); LYMPHOCYTES ABSOLUTE AUTO 0.44 K/mm3 (0.84-5.20); LYMPHOCYTES PERCENT AUTO 4 % (21-46); MONOCYTES ABSOLUTE AUTO 0.39 K/mm3 (0.16-1.47); MONOCYTES PERCENT AUTO 4 % (4-13); Mean Corpuscular HGB Conc 35.2 g/dL (31.5-36.5); Mean Corpuscular Volume 88 fL (80-100); Mean Platelet Volume 10.4 fL (9.1-12.4); NEUTROPHILS ABSOLUTE AUTO 10.21 K/mm3 (1.96-9.15); NEUTROPHILS PERCENT AUTO 92 % (41-73); Platelet Count 228 K/mm3 (150-400); RDW Coefficient Variation 13.6 % (11.7-14.2); RDW Standard Deviation 43.6 fL (35.1-46.3); Red Blood Cell Count 4.48 M/mm3 (4.30-5.90); White Blood Cell Count 11.12 K/mm3 (4.00-11.30)
[2020-07-29 05:07] LABS: Anion Gap 8 mmol/L (6-16); Blood Urea Nitrogen 37 mg/dL (8-24); Bun/Creatinine Ratio 37.2 (12.0-20.0); CO2, Blood 27 mmol/L (21-32); Calcium, Blood 7.8 mg/dL (8.5-10.1); Chloride, Blood 101 mmol/L (98-108); Glomerular Filtration Rate >60 (60-); Glucose, Blood 238 mg/dL (70-99); Potassium, Blood 3.4 mmol/L (3.5-5.5); Sodium, Blood 136 mmol/L (136-145)
--- NOTE | 2020-07-29 05:55 | NUR ---
SHIFT SUMMARY: NO ACUTE CHANGES T/O SHIFT. PT WAS IN CHAIR MOST OF NIGHT RESTING COMFORTABLY. DID GET PT UP TO COMMODE AND THEN TO BED. PT IS ABLE TO REPOSITION SELF FOR COMFORT. VSS. SPO2 STABLE. WILL PASS REPORT TO ONCOMING RN
--- NOTE | 2020-07-29 06:27 | NUR ---
PT SBP ELEVATED. LABETOLOL GIVEN
--- NOTE | 2020-07-29 08:30 | NUR ---
INITIAL ASSESSMENT PATIENT ALERT AND ORIENTED X 4, AFEBRILE. FLAT AFFECT NOTED. PATIENT COOPERATIVE WITH CARE. PATIENT WEAK; 1 PERSON ASSIST TO CHAIR OR BSC. PATIENT DENIES PAIN. PATIENT ON AIRVO AT 60 L AND 85% FIO2. LUNGS CLEAR IN UPPER LOBES AND DIMINISHED IN LOWER LOBES. PATIENT VERY SOB WITH EXERTIONS AND DESATS INTO THE 70S. PATIENT CONTINUES TO REPORT COUGHING UP MODERATE AMOUNT OF THICK, CLEAR SPUTUM OCCASIONALLY. INCENTIVE SPIROMETER AT BEDSIDE. PATIENT IN SR, HR 60S TO 80S. SBP 160S TO 170S. 1+ EDEMA NOTED TO BLES. TRACE EDEMA NOTED TO BUES. ABDOMEN MODERATELY DISTENDED, PATIENT STATES NORMAL. NORMOACTIVE BS NOTED. PATIENT HAS BEEN HAVING FINESSE COLORED STOOLS. ATTENDS IN PLACE FOR OCCASIONAL INCONTINENCE OF URINE AND STOOL. PATIENT HAS HAD POOR APPETITE. PATIENT RECEIVING SCHEDULED LASIX. SKIN DRY AND FRAGILE. SCATTERED BRUISES NOTED. SCROTUM AND PENIS REDDENED. IV FLUSHED AND SALINE LOCKED. BLOOD SUGAR OF 209. BED LOW, CALL LIGHT IN REACH. WILL CONTINUE TO MONITOR PATIENT FREQUENTLY THROUGHOUT SHIFT.
--- NOTE | 2020-07-29 10:00 | NUR ---
DR. NEWMAN UPDATED ON PATIENT STATUS. INFORMED THAT PATIENT'S SBP IN 190S EARLIER THIS AM AND THAT BLOOD TYPER RN GAVE PRN LABETALOL X 2. INFORMED THAT IT APPEARS PATIENT ALSO USUALLY TAKES 100 MG DAILY OF COZAAR AT HOME AND THAT PATIENT IS NOT ON THAT MEDICATION AT THIS TIME. INFORMED THAT PATIENT AT 90% FIO2 ON AIRVO UPON DAY SHIFT ARRIVING AND THAT PATIENT IS CURRENTLY AT 85% FIO2. INFORMED THAT POTASSIUM 3.4 THIS AM. INFORMED THAT FAMILY ASKING ABOUT POSSIBLY PRESCRIBING AN ANTIDEPRESSANT FOR SITUATIONAL DEPRESSION FOR PATIENT.
--- NOTE | 2020-07-29 12:30 | NUR ---
PATIENT AFEBRILE. NO COMPLAINTS OF PAIN. PATIENT REMAINS SATTING 90% AND GREATER ON SAME AIRVO SETTINGS. HR 70S TO 80S. SBP 140S TO 150S. BLOOD SUGAR OF 292; COVERAGE GIVEN. NO OTHER ACUTE CHANGES TO NOTE ON AT THIS TIME. WILL CONTINUE TO MONITOR.
--- NOTE | 2020-07-29 16:10 | NUR ---
PATIENT AFEBRILE. NO COMPLAINTS OF PAIN. PATIENT REMAINS SATTING 90% AND GREATER ON SAME AIRVO SETTINGS. HR IN THE 70S. SBP IN THE 150S. BLOOD SUGAR OF 215; COVERAGE GIVEN. NO OTHER ACUTE CHANGES TO NOTE ON AT THIS TIME. WILL CONTINUE TO MONITOR.
--- NOTE | 2020-07-29 18:23 | NUR ---
SHIFT SUMMARY PATIENT HAS REMAINED ALERT AND ORIENTED X 4, AFEBRILE. PATIENT HAS HAD NO COMPLAINTS OF PAIN. PATIENT HAS REMAINED WEAK BUT ABLE TO TRANSFER TO [facility] [place] 1 PERSON ASSIST. PATIENT HAS REMAINED SATTING 90% AND GREATER ON AIRVO AT 60 L AND 85% FIO2 ALL DAY. PATIENT HAS CONTINUED TO COUGH UP MODERATE AMOUNT OF THICK, CLEAR SPUTUM THIS SHIFT. PATIENT REMAINS VERY SOB WITH EXERTION. PATIENT HAS REMAINED IN SR, HR 60S TO 80S. SBP RANGED FROM 120S TO 190S. PATIENT REMAINS WITH POOR APPETITE BUT HAS EATEN BETTER TODAY THAN YESTERDAY. PATIENT VOIDED TWICE THIS SHIFT. NO CHANGE TO SKIN. PATIENT HAS BEEN SHIFTING OWN HIPS. SLIDING SCALE INSULIN INCREASED TO CASSANDRA FROM LSS. LONG ACTING INSULIN DOSE INCREASED THIS SHIFT. BLOOD SUGARS RANGED FROM 209 TO 292. PATIENT APPEARS CONTENT AT THIS TIME. CALL LIGHT WITHIN REACH. WILL BE GIVING REPORT TO ONCOMING LENS GRINDING MACHINE OPERATOR NURSE SHORTLY.
--- NOTE | 2020-07-29 19:39 | NUR ---
REPORT RECEIVED FROM WESLEY HONG. PT IS CURRENTLY IN CHAIR. ON AIRVO. 85%FIO2. SATTING AT 94%. VSS. WILL CONTINUE TO MONITOR
--- NOTE | 2020-07-30 05:44 | NUR ---
SHIFT SUMMARY: NO ACUTE CHANGES THIS SHIFT. VSS. WILL PASS REPORT TO ONCOMING SHIFT
--- NOTE | 2020-07-30 08:05 | NUR ---
INITIAL ASSESSMENT PATIENT ALERT AND ORIENTED X 4, AFEBRILE. PATIENT DENIES PAIN. PATIENT STILL WITH FLAT AFFECT BUT IS IMPROVED FROM PREVIOUS DAYS. PATIENT WEAK BUT ABLE TO TRANSFER SBA TO BSC AND CHAIR. PATIENT SOB WITH EXERTION AND DESATS DOWN INTO THE 70S. LUNGS DIMINISHED THROUGHOUT. PATIENT SATTING 90% AND GREATER ON AIRVO 60 L AND 90% FIO2. PATIENT REPORTS THAT HE IS STILL COUGHING UP THICK, CLEAR SPUTUM. PATIENT IN SR, HR 60S TO 70S. SBP IN THE 160S. 1+ EDEMA TO BLES. TRACE EDEMA NOTED TO BUES. ABDOMEN MODERATELY DISTENDED; PATIENT STATES NORMAL FOR HIM. PATIENT IS HAVING VILLATORO, LIQUID STOOLS. SKIN DRY AND FRAGILE. SCATTERED BRUISES NOTED. PENIS AND SCROTUM REDDENED. PG FLUSHED AND SALINE LOCKED. BED LOW, CALL LIGHT IN REACH. WILL CONTINUE TO MONITOR PATIENT FREQUENTLY THROUGHOUT SHIFT.
--- NOTE | 2020-07-30 09:30 | NUR ---
DR. NEWMAN INFORMED THAT PATIENT IS HAVING VILLATORO, LIQUID STOOLS. NO ORDERS RECEIVED.
--- NOTE | 2020-07-30 12:15 | NUR ---
PATIENT AFEBRILE. PATIENT DENIES PAIN. PATIENT REMAINS SATTING 90% AND GREATER ON SAME AIRVO SETTINGS. PATIENT DOES CONTINUE TO DESAT INTO 70S AND 80S WITH EXERTION. HR 60S TO 70S. SBP IN THE LOW 100S. BLOOD SUGAR 299; COVERAGE GIVEN. NO OTHER ACUTE CHANGES TO NOTE ON AT THIS TIME. WILL CONTINUE TO MONITOR.
--- NOTE | 2020-07-30 16:00 | NUR ---
PATIENT AFEBRILE. DENIES PAIN. PATIENT REMAINS ON AIRVO AT 60 L AND 90% FIO2. HR 60S TO 70S. SBP IN THE 1-TEENS. NO OTHER ACUTE CHANGES TO NOTE ON AT THIS TIME. WILL CONTINUE TO MONITOR.
--- NOTE | 2020-07-30 18:50 | NUR ---
SHIFT SUMMARY PATIENT REMAINED ALERT AND ORIENTED X 4, AFEBRILE. PATIENT MOOD BETTER THIS SHIFT. PATIENT HAD NO COMPLAINTS OF PAIN THIS SHIFT. PATIENT WEAK BUT SEEMS TO BE IMPROVING IN STRENGTH FROM YESTERDAY. SBA TO BSC. LUNGS REMAINED DIMINISHED. AIRVO 60 L AND 90% FIO2 ALL DAY. PATIENT REMAINS SOB WITH EXERTION. PATIENT REMAINED IN SR, HR 60S TO 80S. SBP LOW 100S TO 160S. PATIENT'S APPETITE SLIGHTLY BETTER TODAY THAN YESTERDAY. PATIENT HAD 2 VILLATORO, LIQUID STOOLS. NO CHANGE IN SKIN. PATIENT HAS BEEN SHIFTING OWN HIPS IN BED AND CHAIR. PATIENT REFUSED BED BATH BUT DID SHAVE. BLOOD SUGARS RANGED FROM 204 TO 299. PATIENT APPEARS CONTENT AT THIS TIME. PATIENT REMAINS IN CHAIR. CALL LIGHT IN REACH. REPORT WILL BE GIVEN TO ONCOMING BEAM BUILDER NURSE SHORTLY.
--- NOTE | 2020-07-30 20:30 | NUR ---
PATIENT SITTING UP IN CHAIR EATING SMALL AMT OF DINNER. VERBALIZED FEELING FULL. AIRVO IN PLACE 60L FIO2 90%. SOB WITH SLIGHT ACTIVITY CONTINUES. ATTENDS IN PLACE DUE TO FREQUENT LOOSE STOOLS, PATIENT DENIES NEED TO USE BSC AT THIS TIME.
--- NOTE | 2020-07-30 21:00 | NUR ---
PATIENT MARITZA PO MEDS WITHOUT DIFFICULTY. ABLE TO TAKE A FEW STEPS FROM CHAIR TO BED WITH MILD SOB AND QUICK RECOVERY WITH AIRVO IN PLACE.
[2020-07-31 04:42] LABS: Hematocrit 37.6 % (37.0-53.0); Hemoglobin 12.8 g/dL (13.5-17.5); Mean Corpuscular HGB 30.1 pg (26.0-34.0); Mean Corpuscular Volume 89 fL (80-100); Mean Platelet Volume 10.6 fL (9.1-12.4); Platelet Count 201 K/mm3 (150-400); RDW Coefficient Variation 13.5 % (11.7-14.2); RDW Standard Deviation 43.7 fL (35.1-46.3); Red Blood Cell Count 4.25 M/mm3 (4.30-5.90)
[2020-07-31 05:07] LABS: Albumin, Blood 1.6 g/dL (3.4-5.0); Anion Gap 8 mmol/L (6-16); Blood Urea Nitrogen 35 mg/dL (8-24); Bun/Creatinine Ratio 35.2 (12.0-20.0); CO2, Blood 31 mmol/L (21-32); Calcium, Blood 7.3 mg/dL (8.5-10.1); Chloride, Blood 98 mmol/L (98-108); Creatinine, Blood 0.99 mg/dL (0.60-1.20); Glomerular Filtration Rate >60 (60-); Glucose, Blood 167 mg/dL (70-99); Phosphorus, Blood 3.9 mg/dL (2.5-4.9); Sodium, Blood 137 mmol/L (136-145)
--- NOTE | 2020-07-31 06:51 | NUR ---
SUMMARY PATIENT VERBALIZED THAT HE HAD A GOOD NIGHT AND FEELS THAT HE HAS SLEPT WELL DURING THE NIGHT. AIRVO REMAINS IN PLACE 60L FIO2 90% WITH BIOX MID 90'S T/O NIGHT. PATIENT INCONT OF LARGE AMT OF URINE X1 DURING THE NIGHT. NO LOOSE BM'S DURING THE NIGHT.
--- NOTE | 2020-07-31 08:30 | NUR ---
INITIAL ASSESSMENT PATIENT ALERT AND ORIENTED X 4, AFEBRILE. PATIENT DENIES PAIN. PATIENT MORE UPBEAT AND POSITIVE TODAY. PATIENT STATES HE "IS FEELING PRETTY GOOD". PATIENT STATES THAT HE SLEPT GOOD LAST NIGHT. PATIENT WEAK BUT ABLE TO REPOSITION SELF IN BED AND CHAIR. SBA TO BSC/ CHAIR. PATIENT ON AIRVO AT 60 L AND 90% FIO2. LUNGS DIMINISHED THROUGHOUT. PATIENT STATES HE OCCASIONALLY COUGHS UP SCANT AMOUNT OF THIN, CLEAR SPUTUM. PATIENT SOB WITH EXERTION. 2+ EDEMA NOTED TO BLE. TRACE EDEMA NOTED TO BUES. PATIENT IN SB TO SR C OCCASIONAL PACS, HR 50S TO 60S. SBP 1-TEENS TO 160S. ABDOMEN MODERATELY DISTENDED; PATIENT STATES NORMAL. APPETITE STILL POOR BUT HAS IMPROVED SLIGHTLY OVER LAST COUPLE OF DAYS. NO STOOLS OVERNIGHT. ATTENDS IN PLACE FOR OCCASIONAL INCONTINENCE. PATIENT BEING GIVEN SCHEDULED LASIX. SKIN DRY AND FRAGILE, SCROTUM AND PENIS REDDENED, SCATTERED BRUISES NOTED. R UA PG FLUSHED AND SALINE LOCKED. BLOOD SUGAR 147; NO COVERAGE INDICATED. BED LOW, CALL LIGHT IN REACH. WILL CONTINUE TO MONITOR PATIENT FREQUENTLY THROUGHOUT SHIFT.
--- NOTE | 2020-07-31 09:00 | NUR ---
DR. ULLOA UPDATED ON PATIENT. INFORMED OF AM POTASSIUM OF 3.0. INFORMED THAT WBCS HAVE INCREASED. NO ORDER RECEIVED AT THIS TIME.
--- NOTE | 2020-07-31 12:15 | NUR ---
PATIENT AFEBRILE. NO COMPLAINTS OF PAIN. PATIENT ON AIRVO AT 60 L AND 87% FIO2. HR 60S TO 70S. SBP 1-TEENS TO 120S. PATIENT RECEIVING 40 MEQ KCL FOR POTASSIUM OF 3.0 THIS AM. NO OTHER ACUTE CHANGES TO NOTE ON AT THIS TIME. WILL CONTINUE TO MONITOR.
--- NOTE | 2020-07-31 16:30 | NUR ---
PATIENT AFEBRILE. NO COMPLAINTS OF PAIN. PATIENT REMAINS ON SAME AIRVO SETTINGS. HR 60S TO 80S. SBP 1-TEENS TO 120S. BLOOD SUGAR OF 292; COVERAGE GIVEN. NO OTHER ACUTE CHANGES TO NOTE ON AT THIS TIME. FAMILY OUTSIDE OF WINDOW VISITING WITH PATIENT ON THE PHONE. WILL CONTINUE TO MONITOR.
--- NOTE | 2020-07-31 18:42 | NUR ---
SHIFT SUMMARY PATIENT REMAINED ALERT AND ORIENTED X 4, AFEBRILE. PATIENT REMAINED AFEBRILE. PATIENT HAD NO COMPLAINTS OF PAIN. PATIENT REMAINED WEAK BUT IS TOLERATING ACTIVITY BETTER. PATIENT WORKED WITH BOTH PT AND OT THIS SHIFT. PATIENT IN BETTER SPIRITS TODAY. PATIENT ON AIRVO 60 L AND 87 TO 90% FIO2. PATIENT DOES REMAIN SOB WITH EXERTION. LUNGS REMAIN DIMINISHED TO AUSCULTATION. PATIENT OCCASIONALLY COUGHED UP SCANT AMOUNT OF THIN, CLEAR SPUTUM. PATIENT REMAINED IN SR WITH OCCASIONAL PACS. HR 60S TO 80S. SBP 90S TO 160S. PATIENT HAD ONE BM THIS AM. PATIENT INCONTINENT OF URINE. ATTENDS CLEAN AND DRY AT THIS TIME. NO CHANGE TO SKIN. PATIENT SHIFTING OWN HIPS T/O SHIFT. PATIENT HAD COMPLETE BED BATH. PATIENT OOB TO CHAIR ALL DAY. PATIENT RECEIVED 40 MEQ KCL FOR POTASSIUM LEVEL OF 3.0 THIS AM. BLOOD SUGARS 147 TO 292. PATIENT APPEARS CONTENT AT THIS TIME. CALL LIGHT IN REACH. REPORT WILL BE GIVEN TO ONCOMING CONSULTING BUSINESS DEVELOPER RN SHORTLY.
--- NOTE | 2020-07-31 20:03 | NUR ---
PATIENT UP IN CHAIR ATE A SMALL AMT OF HIS DINNER. VERBALIZED FEELING TIRED TONIGHT, VERBALIZED HE HAD A GOOD DAY. AIRVO IN PLACE 60L FIO2 87%. PATIENT UP TO BSC ABLE TO VOID 300 OF REINALDO URINE, ATTENDS REMAIN IN PLACE DUE TO INCONTINENCE.
[2020-08-01 05:19] LABS: PCO2 Arterial 42.7 mmHg (35-45); PO2 Arterial 52.2 mmHg (80-100); pH Blood Arterial 7.52 (7.35-7.45)
[2020-08-01 05:34] LABS: BASOPHILS ABSOLUTE AUTO 0.02 K/mm3 (0.00-0.23); BASOPHILS PERCENT AUTO 0 % (0-2); EOSINOPHILS PERCENT AUTO 0 % (0-6); Hematocrit 39.2 % (37.0-53.0); Hemoglobin 13.4 g/dL (13.5-17.5); IMMATURE GRAN ABSOLUTE AUTO 0.15 K/mm3 (0.00-0.10); IMMATURE GRAN PERCENT AUTO 1 % (0-1); LYMPHOCYTES ABSOLUTE AUTO 0.28 K/mm3 (0.84-5.20); LYMPHOCYTES PERCENT AUTO 1 % (21-46); MONOCYTES ABSOLUTE AUTO 0.85 K/mm3 (0.16-1.47); MONOCYTES PERCENT AUTO 4 % (4-13); Mean Corpuscular HGB 30.2 pg (26.0-34.0); Mean Corpuscular HGB Conc 34.2 g/dL (31.5-36.5); Mean Corpuscular Volume 89 fL (80-100); Mean Platelet Volume 11.2 fL (9.1-12.4); NEUTROPHILS ABSOLUTE AUTO 19.25 K/mm3 (1.96-9.15); NEUTROPHILS PERCENT AUTO 94 % (41-73); Platelet Count 175 K/mm3 (150-400); RDW Coefficient Variation 13.7 % (11.7-14.2); RDW Standard Deviation 44.7 fL (35.1-46.3); Red Blood Cell Count 4.43 M/mm3 (4.30-5.90); White Blood Cell Count 20.55 K/mm3 (4.00-11.30)
[2020-08-01 05:56] LABS: Anion Gap 5 mmol/L (6-16); Blood Urea Nitrogen 33 mg/dL (8-24); Bun/Creatinine Ratio 36.9 (12.0-20.0); CO2, Blood 34 mmol/L (21-32); Calcium, Blood 7.6 mg/dL (8.5-10.1); Chloride, Blood 98 mmol/L (98-108); Creatinine, Blood 0.89 mg/dL (0.60-1.20); Glomerular Filtration Rate >60 (60-); Glucose, Blood 176 mg/dL (70-99); Potassium, Blood 3.1 mmol/L (3.5-5.5); Sodium, Blood 137 mmol/L (136-145)
--- NOTE | 2020-08-01 07:34 | NUR ---
SUMMARY PATIENT VERBALIZED HAVING DIFFICULTY SLEEPING T/O NIGHT. FEELING RESTLESS. REMAINS ON AIRVO 60L FIO2 87% CONTINUES TO DESAT EASILY WITH EXERTION. POSITIONING SELF IN BED FOR COMFORT. UP TO BSC AND CHAIR WITH 1 PERSON ASSIST. ATTENDS REMAIN IN PLACE FOR OCCASIONAL INCONT. PATIENT HAD ONE LOOSE BROWN STOOL DURING THE NIGHT.
--- NOTE | 2020-08-01 18:36 | NUR ---
Shift Suammary: Patient was on high flow O2 at the beginning of the shift, doing well with O2 sats in the high 80's to low 90's. As the day went on, his work of breathing increased and O2 sats dropping in the mid to upeer 80's. Patient was in the chair for most of the day with just slight drop of O2 sats with moving from bed to chair. Recovering from this was relatively quick. Patient started to become tachypnic and O2 sats continued to drop. RT came in and adjusted O2, with minimal results. Patient switched to bipap, settings 14/8 @ 100%. Os sats in the low 90's now. Patient resting comfortably. Called patients daughter to inform of change in status. Patient back in bed and bipap continues.
--- NOTE | 2020-08-01 20:52 | NUR ---
PATIENT SLEEPING WITH BIPAP 14/8 FIO2 100% IN PLACE. AWAKENS TO SLIGHT STIMULI. PLACED ON AIRVO 60L FIO2 92% FOR SHORT BREAK ATE A GELATEIN PLUS AND ABLE TO TAKE HIS PO MEDICATIONS. BIOX DOWN TO 79% UP TO 82% WITH DEEP BREATHS, CHANGED BACK TO BIPAP AND POSITIONED TO HIS HIGH LEFT SIDE, SUPPORTED WITH PILLOWS. PATIENT VERBALIZED THAT HE CAN'T LAY ON HIS BELLY. PLAN TO POSITION SIDE TO SIDE TONIGHT.
--- NOTE | 2020-08-01 23:25 | NUR ---
PATIENT AWAKE HAVING A DIFFICULT TIME KEEPING BIPAP IN PLACE. BIOX DOWN TO 76% RECOVERING ONLY TO 80% ON AIRVO. RT CHANGING MASK TO FULL FACE TO LET HIS NOSE HAVE A BREAK. BIOX 92% ON BIPAP FIO2 100%
[2020-08-02 04:05] LABS: BASOPHILS ABSOLUTE AUTO 0.02 K/mm3 (0.00-0.23); BASOPHILS PERCENT AUTO 0 % (0-2); EOSINOPHILS PERCENT AUTO 0 % (0-6); Hematocrit 36.2 % (37.0-53.0); IMMATURE GRAN ABSOLUTE AUTO 0.14 K/mm3 (0.00-0.10); IMMATURE GRAN PERCENT AUTO 1 % (0-1); LYMPHOCYTES ABSOLUTE AUTO 0.27 K/mm3 (0.84-5.20); LYMPHOCYTES PERCENT AUTO 1 % (21-46); MONOCYTES ABSOLUTE AUTO 0.72 K/mm3 (0.16-1.47); MONOCYTES PERCENT AUTO 4 % (4-13); Mean Corpuscular HGB 29.6 pg (26.0-34.0); Mean Corpuscular HGB Conc 33.1 g/dL (31.5-36.5); Mean Corpuscular Volume 89 fL (80-100); NEUTROPHILS ABSOLUTE AUTO 18.47 K/mm3 (1.96-9.15); NEUTROPHILS PERCENT AUTO 94 % (41-73); Platelet Count 130 K/mm3 (150-400); RDW Coefficient Variation 13.9 % (11.7-14.2); RDW Standard Deviation 45.4 fL (35.1-46.3); Red Blood Cell Count 4.05 M/mm3 (4.30-5.90); White Blood Cell Count 19.62 K/mm3 (4.00-11.30)
[2020-08-02 04:21] LABS: Anion Gap 3 mmol/L (6-16); Blood Urea Nitrogen 34 mg/dL (8-24); CO2, Blood 36 mmol/L (21-32); Calcium, Blood 7.4 mg/dL (8.5-10.1); Chloride, Blood 101 mmol/L (98-108); Creatinine, Blood 0.85 mg/dL (0.60-1.20); Glomerular Filtration Rate >60 (60-); Glucose, Blood 125 mg/dL (70-99); Potassium, Blood 3.6 mmol/L (3.5-5.5); Sodium, Blood 140 mmol/L (136-145)
[2020-08-02 05:45] LABS: PO2 Arterial 61.2 mmHg (80-100); pH Blood Arterial 7.52 (7.35-7.45)
--- NOTE | 2020-08-02 06:29 | NUR ---
SUMMARY PATIENT SLEEPING OFF AND ON WITH BIPAP 14/8 FIO2 100% IN PLACE T/O NIGHT. HAVING SHORT BREAKS ON AIRVO 60L FIO2 93% BIOX DROPPING TO 70'S AND SLOWLY RECOVERING TO 85% THEN STARTS DESATING AGAIN. PATIENT VERBALIZED FRUSTRATION WITH HAVING MORE DIFFICULTY BREATHING. ATTEMPT TO USE URINAL ONCE DURING THE NIGHT, MOSTLY INCONT. ATTENDS REMAIN IN PLACE.
--- NOTE | 2020-08-02 07:04 | NUR ---
BIOX DOWN TO 58% PATIENT HAD REMOVED HIS BIPAP WITHOUT CALLING FOR ASSISTANCE IN HIS SLEEP. HE VERBALIZED THAT HE WAS COLD AND WAS TRYING TO GET HIS COVERS UP. PATIENT DIDN'T WANT HEATER ON THE BIPAP BECAUSE IT MADE IT TO WARM. BIOX SLOWLY RECOVERING TO 91% WITH BIPAP REPLACED AND PATIENT POSITIONED HIGH ON HIS RIGHT SIDE. PATIENT VERBALIZED UNDERSTANDING TO HAVE A NURSE IN THE ROOM BEFORE ATTEMPTING TO REMOVE BIPAP.
--- NOTE | 2020-08-02 08:40 | NUR ---
INITIAL ASSESSMENT PATIENT ALERT AND ORIENTED TO ALL QUESTIONS EXCEPT FOR TOWN. PATIENT STATED HE WAS IN [place]. PATIENT SLOW TO RESPOND. PATIENT APPEARS LETHARGIC. PATIENT WEAK. PATIENT AFEBRILE. PATIENT DENIES PAIN. BLOOD SUGAR OF 62 THIS AM. 350 MLS OF OJ GIVEN. LUNGS CLEAR, LOWER LOBES DIMINISHED. PATIENT ON BIPAP 14/8, 100% FIO2. PATIENT TOLERATED OKAY ON AIRVO AT 60 L AND 95% FIO2 FOR ABOUT 10 MINUTES. PATIENT PLACED BACK ON BIPAP FOR INCREASED WOB. PATIENT COUGHED UP MODERATE AMOUNT OF THICK, TENACIOUS, BROWN/ YELLOW SPUTUM THIS AM. PATIENT SOB WITH EXERTION. PATIENT IN SR WITH OCCASIONAL PVCS. HR IN THE 60S. SBP 150S TO 170S. 2+ EDEMA NOTED IN BILAT FEET, 1+ EDEMA NOTED IN BLES. TRACE EDEMA TO BUES. ABDOMEN MODERATELY DISTENDED, SOFT, WITH HYPERACTIVE BS NOTED. ATTENDS IN PLACE FOR OCCASIONAL INCONTINENCE OF URINE. LAST BM ON THE . PATIENT NOT ABLE TO EAT AT THIS TIME BECAUSE OF NEED FOR BIPAP. URINE TEA COLORED. PATIENT RECEIVING SCHEDULED LASIX. SKIN DRY, FRAGILE AND PALE. SCROTUM AND PENIS REDDENED. SCATTERED BRUISES NOTED. IV FLUSHED AND SALINE LOCKED. BED LOW, CALL LIGHT IN REACH. WILL CONTINUE TO MONITOR PATIENT FREQUENTLY THROUGHOUT SHIFT.
--- NOTE | 2020-08-02 09:00 | NUR ---
DR. ULLOA UPDATED ON PATIENT STATUS. INFORMED THAT PATIENT RIPPED MASK OFF THIS AM BEFORE DAY SHIFT ARRIVED AND DESATTED DOWN TO 58%. INFORMED OF LOW BLOOD SUGAR OF 62 THIS AM AND THAT PATIENT GIVEN OJ AND 1/2 AMP D50. INFORMED THAT PATIENT COUGHING UP MODERATE AMOUNT OF THICK, TENACIOUS, BROWN/ YELLOW SPUTUM.
--- NOTE | 2020-08-02 10:58 | NUR ---
DR. ULLOA INFORMED THAT PATIENT SPO2 84 TO 86% ON THE 100% FIO2. NO ORDERS OBTAINED AT THIS TIME.
--- NOTE | 2020-08-02 12:30 | NUR ---
PATIENT AFEBRILE. PATIENT DENIES PAIN. PATIENT ON BIPAP 14/10, 100% FIO2. SPO2 IN THE HIGH 80S. HR 80S TO 90S. SBP 120S TO 140S. ROBLES INSERTED. 600 MLS OF URINE DRAINED FROM ROBLES WITHIN 5 MINUTES OF PLACING. BLOOD SUGAR OF 103. NO OTHER ACUTE CHANGES TO NOTE ON AT THIS TIME. WILL CONTINUE TO MONITOR.
[2020-08-02 12:33] LABS: Source, Urine Catheter
[2020-08-02 13:00] LABS: Bilirubin, Urine Neg (Neg); Blood, Urine 1+ (Neg); Glucose Qualitative, Urine 1+ (Neg); Ketones, Urine Neg (Neg); Leukocyte Esterase, Urine Neg (Neg); Nitrite, Urine Neg (Neg); Protein, Urine 2+ (Neg); Urobilinogen, Urine 2+ (Normal)
[2020-08-02 13:16] LABS: Appearance, Urine Clear (Clear); Color, Urine Yellow (P-Yellow)
[2020-08-02 13:17] LABS: Bacteria Not Seen /hpf; Red Blood Cells, Urine 0-2 /hpf (0-2); Squamous Epithelial Cells Rare /hpf (Few); White Blood Cells, Urine 0-2 /hpf (0-5)
--- NOTE | 2020-08-02 16:00 | NUR ---
PATIENT AFEBRILE. NO COMPLAINTS OF PAIN. PATIENT REMAINS ON BIPAP AT SAME SETTINGS. HR IN THE 70S. SBP 140S TO 150S. NO OTHER ACUTE CHANGES TO NOTE ON AT THIS TIME. FAMILY OUTSIDE WINDOW TO SEE PATIENT. WILL CONTINUE TO MONITOR.
--- NOTE | 2020-08-02 18:52 | NUR ---
SHIFT SUMMARY PATIENT REMAINED MOSTLY ALERT AND ORIENTED. PATIENT LETHARGIC THROUGHOUT THE DAY. PATIENT REMAINED AFEBRILE AND WITH NO COMPLAINTS OF PAIN. PATIENT REMAINED WEAK BUT ABLE TO ASSIST SLIGHTLY WITH REPOSITIONING. LUNGS REMAINED CLEAR/ DIMINISHED. PATIENT REMAINED MOSTLY ON BIPAP WITH A COUPLE SHORT BREAKS ON AIRVO TO TAKE MEDICATIONS AND PERFORM ORAL CARE. BIPAP 14/8, 100% FIO2 AT BEGINNING OF SHIFT AND LATER AT 14/10, 100% FIO2. AIRVO AT 60 L AND 95% FIO2. PATIENT OCCASIONNALY COUGHING UP MODERATE AMOUNT OF VERY THICK/ TENACIOUS, BROWN/ YELLOW SPUTUM. PATIENT SOB WITH EXERTION. PRN MORPHINE GIVEN OT FOR AIR HUNGER; DID SEEM TO IMPROVE SPO2 AFTERWARD. PATIENT REMAINED IN SR, HR 60S TO 90S. SBP 120S TO 170S. SCDS IN PLACE. PATIENT REMAINS EDEMATOUS. NO BM THIS SHIFT. PATIENT DID NOT EAT COULD NOT KEEP BIPAP MASK OFF LONG ENOUGH AND DESATTED QUICKLY WITH EXERTION. ROBLES PLACED FOR STRICT I&O, FOR INCONTINENCE, AND, AGAIN, TO HELP WITH SOB WITH EXERTION. PATIENT ALSO APPEARS TO HAVE RETENTION 600 MLS OF TEA COLORED URINE DRAINED IMMEDIATELY AFTER PLACING ROBLES. PATIENT RECEIVED LASIX PO AND IV. 1590 MLS OF URINE DRAINED. NO CHANGE TO SKIN. D5 1/2 NS INFUSING AT 50 MLS/ HOUR BLOOD SUGARS LOW THIS AM AND PATIENT IS NOT EATING. 1/2 AMP D50 GIVEN X 2 FOR HYPOGLYCEMIA. PATIENT APPEARS CONTENT AT THIS TIME. BED LOW, CALL LIGHT IN REACH. WILL BE GIVING REPORT TO ONCOMING RETAIL PHARMACY MANAGER RN SHORTLY.
--- NOTE | 2020-08-02 22:00 | NUR ---
SHIFT ASSESSMENT PT ALERT & O X 4. PT SLOW TO RESPOND, QUITE LETHARGIC AND WEAK. DENIES ANY PAIN OR DISCOMFORT. ON BIPAP 14/8 @ 100% FIO2. LS DIMINISHED T/O. NSR ON THE VISCOSE CELLAR WORKER. PT UNABLE TO EAT DUE TO RAPIDLY BECOMING DYSPNEIC ON AIRVO. REMOVED BIPAP FOR APPROXIMATELY TWO MINUTES WHILE ORAL MEDICATIONS GIVEN WITH AIRVO @ 100% FIO2 AND PTS SATS DECREASED TO MID 80'S. SATS SLOWLY RETURNED TO 90% WITH BIPAP. ROBLES CATH DRAINING YELLOW URINE. BED IN LOW POSITION, CALL LIGHT IN REACH. WILL CONTINUE TO MONITOR.
--- NOTE | 2020-08-02 23:00 | NUR ---
PT TX TO ICU FROM ER. SLIDER SHEET UTILIZED FOR TX TO ICU BED. UPON ARRIVAL PT ALERT AND ORIENTED TO PERSON AND PLACE. PT ANXIOUS, MOANING, C/O ABD PAIN AND NAUSEA. WRITHING IN BED, UNABLE TO REMAIN STILL. DRY HEAVING SMALL AMOUNTS OF THICK SPUTUM. SHORTLY AFTER TX TO ICU BED, PT AMBULATED TO BEDSIDE COMMODE. PT HAD ONE LOOSE, GREEN BOWEL MOVEMENT. PT A POOR HISTORIAN, WILL NOT INFORM STAFF OF HER PAST MEDICAL HISTORY. SHE IS NOT COMBATIVE, BUT WILL NOT COOPERATE WITH PROVIDING HISTORY OR UPDATING CHART. PT REFUSED TO SIGN ANY FORMS, JUST WANTS TO BE LEFT ALONE. 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 INQUIRED ABOUT PTS LLE DIGIT AMPUTATION BUT PT UNWILLING TO DISCUSS THE SURGERY. WOUND OPEN TO AIR, PT UNSURE IF SHE HAS BEEN FOLLOWING UP WITH HER DR FOR WOUND TREATMENT. WILL CONTINUE TO MONITOR AND ATTEMPT FURTHER DETAILED ASSESSMENT PER PT COMPLIANCE.
[2020-08-03 05:25] LABS: PCO2 Arterial 53.8 mmHg (35-45); pH Blood Arterial 7.47 (7.35-7.45)
--- NOTE | 2020-08-03 06:42 | NUR ---
SHIFT SUMMARY PT REMAINS ALERT AND ORIENTED BUT SLOW TO RESPOND. APPEARED TO SLEEP INTERMITTENTLY T/O THE NIGHT. HAD TWO EPISODES WHERE PT ACCIDENTALLY KNOCKED THE HOSE OFF HIS BIPAP WHICH RESULTED IN PTS O2 SATS DROPPING TO THE LOW 70'S. PTS SATS RECOVERED SLOWLY BUT NEVER ABOVE THE HIGH 80'S. NO CHANGES IN BIPAP SETTINGS. ATTEMPTED TO GIVE PT TWO BREAKS FROM BIPAP BUT O2 SATS QUICKLY DECREASED TO THE LOW 80'S. NO OTHER SIGNIFICANT CHANGES TO PT CONDITION. WILL CONTINUE TO MONITOR UNTIL REPORT TO ONCOMING NURSE.
--- NOTE | 2020-08-03 09:00 | NUR ---
ASSUMED CARE OF PT INITIAL EVAL, SHOWED PT TO BE ON BIPAP 14/10 FIO2 @100%. SPO2 83-88% ATTEMPTED TO PLACE PT ON AIRVO 60L 95% FOR MEDS/MEAL. PT ONLY TOLERATED AIRVO LONG ENOUGH TO TAKE MEDICATIONS WITH ENSURE AND SPO2 DROPPED TO 70%. PT WAS PLACED BACK ON BIPAP AND SPO2 RETURNED TO PRIVIOUS LEVEL. PT DENIED FEELING WORSE WITH HIS DYSPNEA WHEN HIS SPO2 DECREASED. MONITOR SHOWS PT TO BE IN NSR, 1+ EDEMA TO BLE. ROBLES IN PLACE TO GRAVITY, DRAINING REINALDO, CLEAR URINE.
--- NOTE | 2020-08-03 10:23 | NUR ---
PT'S SPO2 MAINTAINING AT 82% ON BIPAP 14/10 FIO2 100%. DISCUSSED WITH DR ULLOA. DR ULLOA REQUESTED TO CONTACT PALLITIVE CARE. REACHED OUT TO PALLITIVE CARE TO DISCUSS CASE.
--- NOTE | 2020-08-03 14:30 | NUR ---
PER PT'S WISHES AND FAMILY, BIPAP WAS REMOVED FROM PT TO PROCEED WITH COMFORT CARE. INSTRUCTED PT AND FAMILY OF PRN MEDICATION USE FOR COMFORT. PT'S FAMILY AT BEDSIDE WITH PT. AFTER REMOVAL OF BIPAP PT'S SPO2 DECREASED TO 30%.
--- NOTE | 2020-08-03 15:20 | NUR ---
TIME OF 1508, WITH FAMILY AT BEDSIDE. DR SAAVEDRA AND DR ULLOA BOTH NOTIFIED OF PT'S . CANDACE GRADUATE RN TO NOTIFY FINANCIAL SYSTEMS ANALYST. FAMILY RELAYED THAT [facility] CHOICE IS [facility] [place] IN [place].
== END 2020-08-03 15:08 | DRG 177 ==
LOC: ER 07:46 → MEDS 11:07 → ICUW 11:07 → MEDS 13:39 → ICUW 07-24 14:31
PROVIDERS: Emergency Medicine; Internal Medicine; Internal Medicine Critical Care Medicine; Internal Medicine Pulmonary Disease; Nurse Practitioner Acute Care; ADMIT Internal Medicine
PROC: XW033E5 Introduction of Remdesivir Anti-infective into Peripheral Vein, Percutaneous Approach, New Technology Group 5 (ICD-10-PCS; principal; 2020-07-23)
PROC: 5A09357 Assistance with Respiratory Ventilation, Less than 24 Consecutive Hours, Continuous Positive Airway Pressure (ICD-10-PCS; 2020-07-23)
DX: U07.1 COVID-19 (principal); J12.82 Pneumonia due to coronavirus disease 2019; J96.01 Acute respiratory failure with hypoxia; E87.1 Hypo-osmolality and hyponatremia; Z79.4 Long term (current) use of insulin; E78.5 Hyperlipidemia, unspecified; I25.10 Atherosclerotic heart disease of native coronary artery without angina pectoris; E11.51 Type 2 diabetes mellitus with diabetic peripheral angiopathy without gangrene; M10.9 Gout, unspecified; Z51.5 Encounter for palliative care; E11.649 Type 2 diabetes mellitus with hypoglycemia without coma; Z87.891 Personal history of nicotine dependence; E66.01 Morbid (severe) obesity due to excess calories; Z68.33 Body mass index [BMI] 33.0-33.9, adult; K21.9 Gastro-esophageal reflux disease without esophagitis; M19.91 Primary osteoarthritis, unspecified site; E83.39 Other disorders of phosphorus metabolism; B37.2 Candidiasis of skin and nail; Z66 Do not resuscitate; Z79.02 Long term (current) use of antithrombotics/antiplatelets
CPT/HCPCS: 36415; 36600; 71045; 80048; 80053; 80069; 81001; 82803; 82947; 83735; 83880; 84100; 84145; 84484; 85025; 85027; 85379; 86140; 93005; 93010; 94660; 94667; 94762; 96374; 97110; 97162; 97166; 97530; 99285-25; A9270; C1751; J1650; J1940; J2270; J2920; J2930; J3480; J7042; J7050